=== PATIENT | male | born 1980 | race Caucasian/White ===

== ENCOUNTER 2023-04-28 05:22 | Observation (INO) ==
--- NOTE | 2023-04-24 09:53 | Anesthesiology Consultation ---
Date of Service April 24, 2023 Assessment & Plan (1) Encounter for pre-operative examination: Chart Review Chart Review: Acceptable Risk for Surgery (pending DOS labs ) and Patient NOT seen in Pre Admission Testing - Will order CBC with diff, PRP and coags for DOS (patient did not get labs done preoperatively) - Patient is NOT an ideal OPJ candidate (currently scheduled as 23 hour obs) -Infectious Disease screening: Per PAT nursing assessment on 04/21/23. No known infectious disease contacts in past 10 days or current infectious disease symptoms. No recent travel outside the country. Patient last seen by PCP 12/11/22= seen for follow up. Surgery recently cancelled due to insurance coverage. Still drinking alcohol. Work is stressful environment. Otherwise feeling better. Avascular necrosis and ELIS- Lexapro dose increased. History Surgery Operation Date: 04/28/23 10:40 Proposed Procedures p Right Total Hip Arthroplasty - Master Morales MD Height/Weight Height: 5 ft 8 in Weight: 72.575 kg Allergies Allergy/AdvReac Type Severity Reaction Status Date / Time No Known Allergies Allergy Verified 04/21/23 12:05 Medications Home Medications Medication Instructions Recorded Confirmed Last Taken ibuprofen 200 mg tablet 400 - 800 mg PO DIRECTED PRN 11/01/22 04/21/23 Unknown Pain omeprazole 20 mg tablet,delayed 20 mg PO DAILY 11/29/22 04/21/23 Unknown release Past Medical History Medical History Acid reflux controlled, stable per pt Alcohol abuse 04/21/23- states has cut back on drinking, no longer drinking daily, will drink ~4-out 7 days or less 4-8 beers per day on average, denies withdrawal seizures or DTs Anxiety Gouty arthritis History of COVID-2019 > not hospitalized > symptoms resolved Hypertension stable per pt, PCP monitoring Past Family History Family History Other No family history of adverse response to anesthesia Past Surgical History Surgical History Hx of removal of cyst head [place] teeth extracted Social History Smoking Status: Current some day smoker Smoking cigarettes per day: 1-2 cigarettes per week -advised Do You Dip or Chew Tobacco: No Hx Alcohol Use: Yes Alcohol type: beer alcohol intake frequency: a few times a week Hx Substance Use: Yes (advised) substance use type: marijuana Last Used Substance Other:: 04/20 Testing Electrocardiogram Date: 12/02/22 NSR, rate 73 bpm Chest X-Ray Date: 11/01/22 *1view* No active disease in the chest.
--- NOTE | 2023-04-26 09:45 | History & Physical Report ---
Date of Service April 26, 2023 Assessment & Plan (1) Arthritis of right hip: 42-year-old gentleman with a significant smoking and alcohol history of bilateral hip AVN right side worse than the left. Failed conservative treatment. He is ready to have his hip fixed. Is affecting his quality of life. Plan: Orgran taken to the operating do right total hip placement. The risks Mente this procedure explained the patient include but not limited to DVT PE infection neurological and vascular bleeding palm pain limb range of motion sepsis fairly with symptoms incomplete relief of symptoms need for further surgery in the future. Patient understands and desires to proceed. Informed consent was obtained. Will use DVT prophylaxis in the hospital due to alcohol use. Will stay in the hospital overnight. Hopefully discharge to home. His girlfriend is going to come and assist in his care. He will follow back with me 2 weeks postop. (2) Avascular necrosis of bone of hip: History of Present Illness Chief Complaint: . Right hip pain. Primary Care Provider: Nicolas Motley DO . 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 He has about a year and a half history of persistent progressive right hip pain discomfort is gradually gotten worse over time. Describes buttock pain groin pain thigh. Rating down to his knee. No real numbness. He is having more more difficulty doing his job due to the hip pain. He has good and bad days but have more bad days as time goes on. Takes medicine with a pretty minimal relief. Does have a significant alcohol history and drinks daily. Lives by himself. Allergies Allergy/AdvReac Type Severity Reaction Status Date / Time No Known Allergies Allergy Verified 04/21/23 12:05 Home Medications Medication Instructions Recorded Confirmed Type ibuprofen 200 mg tablet 400 - 800 mg PO DIRECTED PRN 11/01/22 04/21/23 History Pain omeprazole 20 mg tablet,delayed 20 mg PO DAILY 11/29/22 04/21/23 History release Past Med/Surg History Medical History (Updated 04/26/23 @ 09:44 by Master Morales MD) Avascular necrosis of bone of hip Gouty arthritis Acid reflux controlled, stable per pt Hypertension stable per pt, PCP monitoring History of COVID2019 > not hospitalized > symptoms resolved Alcohol abuse 04/21/23- states has cut back on drinking, no longer drinking daily, will drink ~4-out 7 days or less 4-8 beers per day on average, denies withdrawal seizures or DTs Anxiety Surgical History Hx of removal of cyst head [place] teeth extracted Family History Other No family history of adverse response to anesthesia Social History Smoking Status: Current some day smoker Tobacco Type: Cigarettes Cigarettes Per Day: 1-2 cigarettes per week -advised; Second Hand Exposure: No; Do You Dip or Chew Tobacco: No; Tobacco Cessation Education Requested by Patient: No Hx Alcohol Use: Yes Alcohol type: beer Hx Substance Use: Yes (advised) Last Used Substance Other:: 04/20 Preferred Language: Citizen Of [place] Communication Ability: Effective Jacquard Loom Fixer Required: No Beliefs That Will Affect Care: None Current Living Situation: Alone Other Information That Helps Us Care for You: No Feels Safe at Home: Yes Safety Concerns: Feels Safe At This Time Assistive Devices: Glasses Review of Systems All systems reviewed & are unremarkable except as noted in HPI & below. Physical Exam . Physical examination reveals a pleasant middle-age male. Looks to be in pretty good health. Examination of the right hip reveal patient walks with an antalgic gait. Clinical limps on the right side. Is about half centimeter short in the right side compared to the left he is got pain with any type of hip motion. Internal rotation neutral. Negative straight leg raise. He is neurologically intact. Constitutional WD/WN, vitals as above Neck trachea midline, no thyromegaly Respiratory normal respiratory effort, lungs clear to auscultation Cardiovascular RRR, no murmur, no edema Gastrointestinal (Abdomen) normal bowel sounds, soft, nontender, no hepatosplenomegaly Results & Data Results & Data Laboratory Results . Diagnostic Findings . X-rays of the right hip were reviewed. Shows evidence of AV avascular necrosis of the femoral head without collapse. Is got some remodeling. Narrowing of the joint space. Is got similar but less severe since findings on the left side. PG Care Time/CCT Total # of Minutes Spent Total Time Spent with Patient: Total time spent is greater than 50% in coordination of care (as documented) at patient's floor/unit and/or counseling patient: Coding Level of Care Code None Diagnoses Arthritis of right hip M16.11 Avascular necrosis of bone of hip M87.059
--- OUTSIDE RECORDS SUMMARY | 2023-04-28 05:27 | External Medical Summary | Summary of Care ---
Author Name Unknown Organization [facility] Address [address] [place] [address] Phone [phone] Care Team Providers Care Fish Cutting Machine Operator Name Role Phone Unavailable Primary Care Provider Unavailabl e Encounter Details Date Type Department Care Team (Late st Contact Info) Description 03/13/2023 Patient Reported Data Patient Survey Ortho OBERD Allergies No known active allergiesdocumented as of this encounter (statuses as of 03/13/2023) Medications Medication Sig Dispensed Refills Start Date End Date Status Diclofenac Sodium 75 MG Oral Tablet Delayed Release (Voltaren) Take 1 Tablet by mouth in the morning and 1 Tablet before bedtime. With food.. 60 Tablet 3 11/29/2022 Active Additional Information Patient not taking.Reported on 03/10/2023 Escitalopram Oxalate 20 MG Oral Tablet (Lexapro)Indication s:ELIS (generalized anxiety disorder) Take 1 Tablet by mouth in the morning. 30 Tablet 5 12/11/2022 Active Additional Information Patient not taking.Reported on 03/10/2023 documented as of this encounter (statuses as of 03/13/2023) Active Problems Problem Noted Date Diagnosed Date ELIS (generalized anxiety disorder) 12/11/2022 Avascular necrosis 12/11/2022 Gout 11/12/2022 documented as of this encounter (statuses as of 03/13/2023) Immunizations Name Administration Dates Next Due Seasonal Influenza, PF, 6 M & above, IM , (FluLaval or Fluzone) 11/12/2022 TDAP (age 10 and older)(Boostrix) 11/12/2022 documented as of this encounter Social History Tobacco Use Types Packs/Day Years Used Date Smoking Tobacco: Every Day Cigarettes 0.3 Smokeless Tobacco: Never Alcohol Use Standard Drinks/Week Comments Yes 0 (1 standard drink = 0.6 oz pur e alcohol) 2-3 a day PHQ-2 Answer Date Recorded PHQ Adult Total Score 0 12/11/2022 Hunger Vital Sign Answer Date Recorded Within the past 12 months, y ou worried that your food would run out before you got the money to buy more. Never true 10/30/19 23 Within the past 12 months, t he food you bought just didn't last and you didn't have money to get more. Never true 10/29/2022 Sex and Gender Information Value Date Recorded Sex Assigned at Male 10/29/2022 9:11 AM EDT Gender Identity Male 10/29/2022 9:11 AM EDT Sexual Orientation Straight 10/29/2022 9: 11 AM EDT Job Start Date Occupation Industry Not on file Not on file Not on file documented as of this encounter Plan of Treatment Health Maintenance Due Date Last Done Comments Diabetes Screening 1980 Hepatitis B (1 of 3 - 3-dose series) 1980 Lipid Panel 1980 Pneumococcal Vaccine: Pediatrics (0 to 5 Years) and At-Risk Patients (6 to 64 Years) (1 - PCV) 1986 HIV Screening 11/25/1995 Hepatitis C Screening 1998 COVID-19 Vaccine (3 - 2022-2 4 season) 2022 08/13/2020, 07/16/2020 Depression Screening 12/12/2023 12/11/2022 DTaP,Tdap,and Td Vaccines (2 - Td or Tdap) 11/12/2032 11/12/2022 Influenza Vaccine (FLU shot) Completed 11/12/2022 GARDASIL-HPV IMMUNIZATION SERIES Aged Out No longer eligible b ased on patient's age to complete this topic MENINGOCOCCAL (MENACTRA/MENVEO) Aged Out No longer eligible b ased on patient's age to complete this topic documented as of this encounter Medical Devices Not on filedocumented as of this encounter
--- OUTSIDE RECORDS SUMMARY | 2023-04-28 05:28 | External Medical Summary | Summary of Care ---
Author Name Unknown Organization [facility] Address [address] [place] [address] Phone [phone] Care Team Providers Care Rehabilitation Construction Specialist Name Role Phone Unavailable Primary Care Provider Unavailabl e Encounter Details Date Type Department Care Team (Late st Contact Info) Description 03/01/2023 Patient Reported Data Patient Survey Ortho OBERD Allergies No known active allergiesdocumented as of this encounter (statuses as of 03/01/2023) Medications Medication Sig Dispensed Refills Start Date End Date Status Diclofenac Sodium 75 MG Oral Tablet Delayed Release (Voltaren) Take 1 Tablet by mouth in the morning and 1 Tablet before bedtime. With food.. 60 Tablet 3 11/29/2022 Active Escitalopram Oxalate 20 MG Oral Tablet (Lexapro)Indications: ELIS (generalized anxiety disorder) Take 1 Tablet by mouth in the morning. 30 Tablet 5 12/11/2022 Active documented as of this encounter (statuses as of 03/01/2023) Active Problems Problem Noted Date Diagnosed Date ELIS (generalized anxiety disorder) 12/11/2022 Avascular necrosis 12/11/2022 Gout 11/12/2022 documented as of this encounter (statuses as of 03/01/2023) Immunizations Name Administration Dates Next Due Seasonal [...] as of this encounter Plan of Treatment Upcoming Encounters Date Type Department Care Team (Late st Contact Info) Description 03/10/2023 8:30 AM EST Office Visit Orthopaedics, [facility]ull[facility] [address] [place] [address] Atif Park MD [address] [facility] [place] [address] 03/17/2023 3:25 PM EST Office Visit Family Practice [facility] [address] [place] [address] Nicolas Motley, [address] [facility] [place] [address] Health Maintenance Due Date Last Done Comments [...]
--- OUTSIDE RECORDS SUMMARY | 2023-04-28 05:28 | External Medical Summary | Summary of Care ---
Author Name Unknown Organization [facility] Address [address] [place] [address] Phone [phone] Care Team Providers Care Exhibit Carpenter Name Role Phone Unavailable Primary Care Provider [...] [address] [place] [address] Atif Park MD [address] [facility] [place] [address] 03/17/2023 3:25 PM EST Office Visit Family Practice [facility] [address] [place] [address] Nicolas Motley, [address] [facility] [place] [address] Health Maintenance Due Date Last Done Comments [...]
--- OUTSIDE RECORDS SUMMARY | 2023-04-28 05:28 | External Medical Summary | Summary of Care ---
Author Name Unknown Organization [facility] Address [address] [place] [address] Phone [phone] Care Team Providers Care Resolute Professional Name Role Phone Unavailable Primary Care Provider [...] [address] [place] [address] Atif Park MD [address] [facility] [place] [address] 03/17/2023 3:25 PM EST Office Visit Family Practice [facility] [address] [place] [address] Nicolas Motley, [address] [place] [address] Health Maintenance Due Date Last Done Comments [...]
--- OUTSIDE RECORDS SUMMARY | 2023-04-28 05:28 | External Medical Summary | Summary of Care ---
Author Name Unknown Organization [facility] Address [address] [place] [address] Phone [phone] Care Team Providers Care Spot Sprayer Name Role Phone Unavailable Primary Care Provider [...] [address] [place] [address] Atif Park MD [address] [facility] [address] 03/17/2023 3:25 PM EST Office Visit Family Practice [facility] [address] [place] [address] Nicolas Motley, [address] [facility] [place] [address] Health Maintenance Due Date Last Done Comments [...]
--- OUTSIDE RECORDS SUMMARY | 2023-04-28 05:28 | External Medical Summary | Summary of Care ---
Author Name Unknown Organization [facility] Address [address] [place] [address] Phone [phone] Care Team Providers Care Consumer Loan Officer Name Role Phone Unavailable Primary Care Provider [...] [address] [place] [address] Atif Park MD [address] [facility] [place] [address] 03/17/2023 3:25 PM EST Office Visit Family Practice [facility] [address] [place] [address] Nicolas Motley, [address] [place] [address] Health Maintenance Due Date Last Done Comments [...]
--- OUTSIDE RECORDS SUMMARY | 2023-04-28 05:28 | External Medical Summary | Summary of Care ---
Author Name Unknown Organization [facility] Address [address] [place] [address] Phone [phone] Care Team Providers Care Belt Changer Name Role Phone Unavailable Primary Care Provider Unavailabl e Reason for Visit * Reason Comments NEW PATIENT Flynn hip pain, right worse than left. Referred by Dr. Alejo. Xray 10/31/22. * Evaluate & Treat - Unlimited Visits (Within 10 days (routine)) - Authorized Specialty Diagnoses / Procedures Referred By Karmen burch Referred To Contact Orthopaedic Surgery / Orthopedics Diagnoses Avascular necrosis of femoral head, right (HCC) Avascular necrosis of femoral head, left (HCC) Dee Alejo MD [address] [place] [address] Referral ID Status Reason Start Date Expiration Date Visits Requested Visits Authorized [id number] Authorized Specialty Services Required 3 12/11/[phone] Encounter Details Date Type Department Care Team (Late st Contact Info) Description 03/10/2023 8:30 AM EST Office Visit Orthopaedics, Germ[facility] Grullon [address] [place] [address] Atif Park MD [address] [place] [address] Avascular necrosis of femoral head, right (HCC)* Allergies No known active allergiesdocumented as of this encounter (statuses as of 03/10/2023) Medications Medication Sig Dispensed Refills Start Date [...] as of this encounter (statuses as of 03/10/2023) Active Problems Problem Noted Date Diagnosed Date ELIS (generalized anxiety disorder) 12/11/2022 Avascular necrosis 12/11/2022 Gout 11/12/2022 documented as of this encounter (statuses as of 03/10/2023) Immunizations Name Administration Dates Next Due Seasonal [...] on file documented as of this encounter Last Filed Vital Signs Vital Sign Reading Time Taken Comments Blood Pressure - - Pulse - - Temperature - - Respiratory Rate - - Oxygen Saturation - - Inhaled Oxygen Concentration - - Weight 77.2 kg (170 lb 4.8 oz) 03/10/2023 8:42 A M EST Height 172.7 cm (5' 8") 03/10/2023 8:42 AM EST Body Mass Index 25.89 03/10/2023 8:42 AM EST documented in this encounter Progress Notes * Atif Park MD - 03/10/2023 8:44 AM EST Patient Name: Freddy Hernandez CC: NEW PATIENT (Flynn hip pain, right worse than left. Referred by Dr. Alejo. Xray 10/31/22. ) HPI: Freddy Hernandez 42 year old male comes in for evaluation of Right hip pain chronic pain which is progressively getting worse where he is having severe difficulty in ambulation, pain is moderate to severe, dull ache in nature, get worse with walking, climbing stairs and with routine activities. Patient reports daily living activity were affected significantly due to pain and also c/o night pain which awakens them from sleep. Patient tried conservative treatment and reported no improvement of pain. He has minimal discomfort of the left hip. He feel limb length discrepancy secondary to pelvic obliquity with lower extremity is longer clinically. Patient is a smoker as well as chronic alcohol drinker Past Medical History: Diagnosis Date Gout No past surgical history on file. No family history on file. Social History Social History Narrative Originally from [place]. Lived in [place] for a period ROS- Denies any recent illness, denies acute chest pain, breathlessness, loss of conscious, weakness, other system are reviewed and as discussed above. Examination: Ht 1.727 m (5' 8") | Wt 77.2 kg (170 lb 4.8 oz) | BMI 25.89 kg/m | BSA 1.92 m The patient is stable, oriented to person, place and time. The patient is not in acute distress. Gait-Patient walks with significant limp. Right Hip- Tenderness around hip ROM- Positive flexion contracture approximately around 15 with severe restricted range of motions and rotations. Grossly intact neurovascular status. Radiographic evaluation- I reviewed radiographs independently was ordered by another provider. Radiographs demonstrated a vascular necrosis of femoral head with deformity and arthritis of hip joint, loss of joint space,. Left hip shows minimal symptoms. Pelvic obliquity with locked hip is on lower side. Hemoglobin AIC Results: No results found for: "HEMOGLOBIN A1C" CBC Results: Basic Panel Results: Diagnosis- a vascular necrosis of femoral head with arthritis of Right hip with failed conservativetreatment. Plan- Discussed all finding in detail including radiographic and clinical findings. I had a long discussion with the patient regarding arthritis and treatment options. We had long discussion about non-operative management, which includes the use of appropriate exercises, activity modification, physical therapy treatment, weight reduction and maintenance, appropriate medication use, use of assistive devices, role of injection and avoidance of high impact activities. The patient has severe disease and has exhausted all reasonable non-operative treatment options. The patient has suffered a significant degradation in quality of life. Total Hip arthroplasty can improve this patient's pain and function, thereby restoring their quality of life. However, while I believe that the benefits greatly outweigh the risks in this case, the patient understands that there isno guarantee of a satisfactory outcome following surgery. The patient understands that total joint arthroplasty is an elective procedure. We reviewed the elective quality of life nature of the procedure and the details of surgery, approach and the implant used, using the model and illustration in the clinic. We also had a long discussion about the risks of surgery. Again, this list is certainly not complete, but is intended to make the patient aware of the kinds of complications that can occur with majororthopaedic surgery. These risks include, but are not limited to: implant dislocation, fracture of the supporting bone, injury to a nerve or blood vessel, injury of a tendon or ligament, post-operative pain, stiffness or instability of the joint, dislocation, limb length inequality, loosening of the implant, mechanical failure of the implant, and infection of the implant. She is high risk for dislocation considering his heavy drinking of alcohol as well as high risk of loosening of implant or failure to osteo integrate keep due to smoking as well as high risk of medical and anesthesia due to his heavy drinking alcohol and smoking. Discussed with the patient about smoking cessation as well as cutting down his alcohol. He will follow up with us after he discussed with PCP regarding his heavy drinking of alcohol and we will get help from PCP to cut down the alcohol. This chart was completed in part utilizing [employer] Speech Voice Recognition Software. Grammatical errors, random word insertions, prounoun errors and incomplete sentences are an occasional consequence of this system due to software limitations, ambient noise, and hardware issues. Any formal questions or concerns about the content, text, or information contained within the body of this dictation should be directly addressed to the provider for clarification. documented in this encounter Nursing Notes * Zo Duque LPN - 03/10/2023 8:43 AM EST Chief Complaint Patient presents with NEW PATIENT Flynn hip pain, right worse than left. Referred by Dr. Alejo. Xray 10/31/22. documented in this encounter Plan of Treatment Upcoming Encounters Date Type Department Care Team (Late st Contact Info) Description 03/17/2023 3:25 PM EST Office Visit [facility] [place] [address] [facility] [place] [address] Nicolas Motley, 200 [facility] [place] [address] Scheduled Referrals Name Type Priority Associated Diagnoses Order Schedule ORTHOPAEDICS REFERRAL OP Referral Within 10 days (routine) Avascular necrosis of femoral head, right (HCC) Avascular necrosis of femoral head, left (HCC) Ordered: 12/10/2022 Health Maintenance Due Date Last Done Comments [...] Not on filedocumented as of this encounter Visit Diagnoses Diagnosis Avascular necrosis of femoral head, right (HCC)- Primary documented in this encounter
[2023-04-28] MEDS: ACETAMINOPHEN 500 MG TAB PO SCH ×2 (05:49→13:39)
[2023-04-28] MEDS: LR 500ML BOLUS, THEN 15ML/HR IV SCH (05:49)
[2023-04-28] MEDS: dexAMETHasone**PF** 10 MG/ML VIAL IV SCH (05:49)
[2023-04-28] MEDS: METOCLOPRAMIDE HCL 10 MG TABLET PO SCH (05:50)
[2023-04-28] MEDS: FAMOTIDINE 20 MG TAB PO SCH (05:50)
[2023-04-28] MEDS: LR 60ML/HR IV SCH (05:50)
[2023-04-28] MEDS: CeleBREX 200 MG CAP PO SCH (05:50)
[2023-04-28] MEDS: Scopolamine 1 MG TDSY TD SCH (05:50)
[2023-04-28 06:02] LABS: Basophils # (auto) 0.04 K/uL (0.00-0.20); Basophils % (auto) 0.5 %; Eosinophils # (auto) 0.21 K/uL (0.00-0.50); Eosinophils % (auto) 2.8 %; Hematocrit (blood only) 46.8 % (42.0-52.0); Hemoglobin 16.1 g/dl (14.0-18.0); Immature Granulocytes # (auto) 0.04 K/uL (0.01-0.20); Immature Granulocytes % (auto) 0.5 %; Mean Corpuscular Hemoglobin 29.6 pg (25.0-34.0); Mean Corpuscular Hgb Conc 34.4 g/dL (32.0-36.0); Mean Platelet Volume 9.4 fL (9.4-12.4); Monocytes # (auto) 0.71 K/uL (0.11-0.59); Monocytes % (auto) 9.5 %; Neutrophils % (auto) 50.7 %; Platelet Count 414 K/uL (130-400); RDW Coefficient of Variation 12.1 % (11.5-14.5); RDW Standard Deviation 37.6 fL (36.4-46.3); Red Blood Count 5.44 M/uL (4.70-6.10)
[2023-04-28 06:09] LABS: BUN Creatinine Ratio 14.6 (10-20); Calcium 10.1 mg/dl (8.6-10.3); Creatinine Clr Calc Pharmacy 90.4 ml/min; Est GFR (African American) 103.4 ml/min; Est GFR (Non-African American) 89.2 ml/min; Potassium 4.1 mmol/L (3.5-5.1)
[2023-04-28] MEDS ORDERED: BUPIVACAINE 0.5 % 5 MG/1 ML PF 10ML VIAL ONE (06:20)
[2023-04-28] MEDS ORDERED: DexMEDEtomidine HCL IV 100 MCG/ML VIAL IV ONE (06:29)
[2023-04-28] MEDS ORDERED: fentaNYL citrate PF 100 MCG/2 ML VIAL ONE (06:36)
[2023-04-28] MEDS ORDERED: MIDAZOLAM HCL 1 MG/ML 2ML VIAL ONE (06:36)
[2023-04-28 06:44] LABS: Partial Thromboplastin Time 27 Seconds (21-31); Prothrombin Time 11.4 Seconds (9.0-12.0)
[2023-04-28] MEDS: TRANEXAMIC ACID 1,000 MG **IV Pre-op IV SCH (06:52)
--- NOTE | 2023-04-28 06:53 | History & Physical Bridge Note ---
Date of Service April 28, 2023 History & Physical Bridge Note I have examined the patient, reviewed the History & Physical and in the interval since the performance of the History & Physical I have noted the following changes of clinical significance: no changes noted
[2023-04-28] MEDS: ceFAZolin 2000MG 2,000 MG/15 ML SYR IV SCH (06:55)
[2023-04-28] MEDS ORDERED: ePHEDrine sulfate 50 MG/ML AMP IV PRN (07:05)
[2023-04-28] MEDS ORDERED: PROMETHAZINE HCL 6.25 MG in SODIUM CHLORIDE 0.9% 50 ML IV PRN (07:05)
[2023-04-28] MEDS ORDERED: ONDANSETRON INJ 2 MG/ML 2 ML VIAL IV PRN ×2 (07:05→09:57)
[2023-04-28] MEDS ORDERED: ATROPINE SULFATE 0.1 MG/ML 10ML SYR IV PRN (07:05)
[2023-04-28] MEDS ORDERED: HYDROmorphone INJ 2 MG/ML SYR/VIAL IV PRN (07:05)
[2023-04-28] MEDS ORDERED: ONDANSETRON INJ 2 MG/ML 2 ML VIAL ONE (07:32)
[2023-04-28] MEDS ORDERED: DEXAMETHASONE SOD INJ 4 MG/ML VIAL ONE (07:32)
[2023-04-28] MEDS ORDERED: PROPOFOL IV EMULSION 10 MG/ML 100 ML VIAL IV ONE (07:32)
[2023-04-28] MEDS: BUPIVACAINE/EPINEPHRINE 0.5% MPF 1:200,000 30 ML VIAL ONE (08:02)
[2023-04-28] MEDS ORDERED: chlordiazePOXIDE HCl 25 MG CAP PO PRN (08:26)
--- NOTE | 2023-04-28 08:34 | Operative Report ---
PG Post Operative Report Pre & Post Diagnosis Operation Date: 04/28/23 07:00 Pre-Op Diagnosis: Hip Avascular Necrosis Right Post-Op Diagnosis: Hip Avascular Necrosis Right I identified the patient and participated in the time-out.: Yes Procedure Operation Date: 04/28/23 07:00 Actual Procedures p Right Total Hip Arthroplasty(Right) - Master Morales MD Surgeon Master Morales MD Umbrella Mender Everardo Celestin PA-C Estimated Blood Loss 100 Findings Consistent with Post-Op Diagnosis Operative findings revealed pretty extensive avascular necrosis femoral head with collapse of femoral head. He had delamination of the cartilage. He had some secondary degenerative changes. Fairly large hip joint effusion. Specimens Right femoral head sent for pathology. Anesthesia Type Spinal MAC Complications none Disposition Accompanied Patient To Recovery: No Indications Patient is a 42-year-old gentleman whose had a several year history of increasing right hip pain discomfort is consequently worse over the past 6 to 12 months. A has a known history of significant alcohol intake. X-rays show hip avascular necrosis with progressive collapse. He failed conservative treatment. He had been scheduled for surgery in the past but had to cancel for various reasons. He has become more debilitated by his hip pain. Is having difficulty doing his job. He is elected proceed with total hip arthroplasty. Description of Procedure Operative implants consist of: 1. Biomet G7 size 52 mm acetabular shell. 2. 6.5 cancellous acetabular screws 1 of 35 mm in length and 1 of 20 mm length. 3. [place] hole renewals specialist. 4. Highly cross-linked polyethylene liner with a 52 mm outer diameter 36 mm inner diameter. 5. DePuy Karaya size 11 KLA femoral stem. 6. +5/36 mm ceramic articular ball. The patient was taken to the operating, identified, placed on the operating table in the supine position. All contact areas were appropriately padded. IV antibiotics 5 by anesthesia team. Spinal anesthetic had been implemented holding area. The patient was then placed in the left lateral decubitus position. Axillary roll was placed. Distal Birkett position was used for positioning. The right hip and leg were then prepped and draped in usual sterile fashion. A posterolateral approach to the right hip was then performed through a curvilinear incision centered over the greater trochanter. Sharp dissection was carried through subcutaneous tissue down of the IT band gluteal fascia. The IT band gluteal fascia was incised longitudinally in line with skin incision. The underlying greater bursa was excised. The piriformis and external rotators along with the posterior hip joint capsule were then released from the posterior aspect the hip as a single layer. Great care was taken throughout the procedure protect the sciatic nerve at all times. The hip was internally rotated and dislocated. Femoral neck osteotomy cut was made with a Final Cut about 12 mm above the lesser trochanter. Femoral head was removed and sent for pathology. The femur was retracted anteriorly. Attention drawn the acetabulum. The acetabular labrum was excised. The pulmonary fat was excised. Sequential reaming the acetabular was then performed beginning with a size 45 and progressing up to a 51. I reamed a little bit with a 52 reamer and then placed a 52 mm Biomet acetabular shell in about 40 degrees lateral opening and 20 degrees of anteversion. It was fixed with two 6.5 cancellous acetabular screws. Trial liner was placed. Attention drawn the femur. The proximal femur was then with a [employer] cutter followed by canal finder. I then broached beginning size 8 broach and progressed up to 11. Get excellent fit 11. I did not think I could fit the 12 distally. We trialed the hip and the +5 articular ball provide full stability in full extension and external rotation and flexion to 90 degrees internal rotation to over 50 degrees. The hip was stable. Soft tissue tension seemed appropriate and leg lengths seemed equal. We elect to place these implants. All trial implants were removed. [place] hole renewals specialist was placed. Highly cross- linked polyethylene liner was placed. A size 11 KLA femoral stem was impacted in position. +5/36 mm ceramic articular ball was placed. Hip was located and once again found to be stable. Attention drawn toward closing. The wound was irrigated with copious amounts of pulsatile lavage solution. I did inject locally with 60 cc of half percent Marcaine with epinephrine. The posterior capsule and external rotators then repaired through drill holes in the posterior trochanter with #2 Tycron suture. The IT band gluteal fascia then closed in 1 PDS suture running fashion. Subcutaneous tissues then closed with 2 layers the deep layer #1 Vicryl suture and subcutaneous tissue with 2-0 Dexon suture in a buried interrupted fashion. Skin was closed skin jamal. Leg was then cleaned and dried and sterile dressing was Xeroform, 4 fours, ABD pad and foam tape was applied. The patient then transferred to the recovery room in stable condition. Patient tolerated procedure well and there were no complications. Everardo Celestin, my physician assistant boys track coach, was present for the entire procedure. His assistance was essential and required for appropriate patient positioning, prepping and draping, surgical exposure, performing the technical details of the operation, placement the implants, closure of the wound, and placement of the sterile bandage. I attest to the content of the Intraoperative Record and any orders documented therein. Any exceptions are noted below.
--- NOTE | 2023-04-28 09:07 | XRay Report ---
XR hip 1V RT w pelvis CLINICAL HISTORY: Postoperative evaluation. COMPARISON: Right hip radiographs October 31, 2022. FINDINGS: Alignment of the total right hip arthroplasty is anatomic. There is no periprosthetic frac ture or unexpected radiopaque foreign body. There are acetabular screws. IMPRESSION: Expected findings following total right hip arthroplasty. ACT 112: Negative or not required by law. Electronically signed by: Zane Valenzuela M.D. 04/28/2023 9:05 AM
--- NOTE | 2023-04-28 09:42 | Anesthesiology Progress Note ---
Date of Service April 28, 2023 Anesthesia Post Procedure Vital Signs Vital Signs: Temp Pulse Pulse Resp BP BP Pulse Ox 04/28/23 09:35 82 15 147/95 H 99 04/28/23 09:25 84 16 128/96 99 04/28/23 09:15 80 13 142/99 H 100 04/28/23 09:05 36.4 C L 82 12 146/105 H 100 04/28/23 08:55 86 19 150/96 H 100 04/28/23 08:45 74 13 132/95 98 04/28/23 08:35 89 23 150/88 H 100 04/28/23 08:25 83 16 136/94 100 04/28/23 08:18 36.3 C L 84 29 H 146/91 H 99 04/28/23 05:39 36.6 C 96 H 20 138/89 97 O2 Del Method 04/28/23 09:35 Room Air 04/28/23 09:25 Room Air 04/28/23 09:15 Room Air 04/28/23 09:05 Room Air 04/28/23 08:55 Room Air 04/28/23 08:45 Room Air 04/28/23 08:35 Room Air 04/28/23 08:25 Room Air 04/28/23 08:18 Room Air 04/28/23 05:39 Room Air Transfer of Care Handoff Completed per policy Notes Mental Status: alert / awake / arousable and participated in evaluation Nausea / Vomiting: adequately controlled Pain: adequately controlled Airway Patency, RR, SpO2: stable & adequate BP & HR: stable & adequate Hydration State: stable & adequate Neuraxial Anesthesia: was administered and sensory block is resolving Anesthetic Complications: no major complications apparent and Pt Satisfied with anesthetic care
[2023-04-28] MEDS ORDERED: TAMSULOSIN HCL 0.4 MG CAP PO PRN (09:57)
[2023-04-28] MEDS ORDERED: MAGNESIUM HYDROXIDE SUSP 30 ML UDC PO PRN (09:57)
[2023-04-28] MEDS ORDERED: bisacodyL 10 MG SUPP PR PRN (09:57)
[2023-04-28] MEDS ORDERED: NALOXONE HCL 0.4 MG/1 ML VIAL/CARP IV PRN (09:57)
[2023-04-28] MEDS ORDERED: diphenhydrAMINE Capsule 25 MG CAP PO PRN (09:57)
[2023-04-28] MEDS ORDERED: ALUMINUM/MAGNESIUM SUSP 30 ML UDC PO PRN (09:57)
[2023-04-28] MEDS ORDERED: METOCLOPRAMIDE HCL INJ 5 MG/ML 2 ML VIAL IV PRN (09:57)
[2023-04-28] MEDS: SENNA 8.6 MG TAB PO SCH (10:36)
[2023-04-28] MEDS: PANTOprazole 40 MG TAB PO SCH (10:36)
[2023-04-28] MEDS: MULTIVITAMIN TAB PO SCH (10:36)
[2023-04-28] MEDS: NICOTINE 14 MG/24 HR PATCH TD SCH (10:37)
[2023-04-28] MEDS: ASPIRIN 81 MG ECTAB PO SCH (10:37)
[2023-04-28] MEDS: DOCUSATE SODIUM 100 MG CAP PO SCH (10:37)
[2023-04-28] MEDS: FOLIC ACID 1 MG TAB PO SCH (10:37)
[2023-04-28] MEDS: THIAMINE HCL 100 MG TAB PO SCH (10:37)
[2023-04-28] MEDS: KETOROLAC 30 MG/ML VIAL IV SCH (10:38)
[2023-04-28] MEDS: ceFAZolin 1000MG 1,000 MG/7.5 ML SYR IV SCH (14:55)
[2023-04-28] MEDS: TRANEXAMIC ACID / 0.7% NACL 1,000 MG/100 ML BAG IV SCH (14:55)
[2023-04-28] MEDS: ASCORBIC ACID 500 MG TAB PO SCH (16:28)
[2023-04-28] MEDS: Scopolamine CHECK PATCH PLACEMENT SCH (16:28)
[2023-04-28] MEDS: SODIUM CHLORIDE 0.9% 1,000 ML IV SCH (17:05)
[2023-04-28] MEDS: traMADol HCL 50 MG TABLET PO PRN (19:04)
[2023-04-28] MEDS: HYDROmorphone INJ 0.5 MG/0.5 ML SYR IV PRN (19:55)
[2023-04-28] MEDS ORDERED: SENNA 8.6 MG TAB PO SCH (21:00)
[2023-04-29 06:15] LABS: Basophils # (auto) 0.01 K/uL (0.00-0.20); Basophils % (auto) 0.1 %; Hematocrit (blood only) 38.9 % (42.0-52.0); Hemoglobin 13.5 g/dl (14.0-18.0); Immature Granulocytes # (auto) 0.04 K/uL (0.01-0.20); Immature Granulocytes % (auto) 0.3 %; Lymphocytes % (auto) 8.9 %; Mean Corpuscular Hemoglobin 29.9 pg (25.0-34.0); Mean Corpuscular Hgb Conc 34.7 g/dL (32.0-36.0); Mean Corpuscular Volume 86.3 fL (80.0-100.0); Mean Platelet Volume 9.8 fL (9.4-12.4); Monocytes # (auto) 1.05 K/uL (0.11-0.59); Monocytes % (auto) 8.5 %; Neutrophils # (auto) 10.16 K/uL (1.40-6.50); Neutrophils % (auto) 82.2 %; Platelet Count 303 K/uL (130-400); RDW Coefficient of Variation 12.2 % (11.5-14.5); RDW Standard Deviation 38.3 fL (36.4-46.3); Red Blood Count 4.51 M/uL (4.70-6.10); White Blood Count 12.36 K/ul (4.8-10.8)
[2023-04-29 06:41] LABS: Potassium 4.3 mmol/L (3.5-5.1)
[2023-04-29 06:46] LABS: BUN Creatinine Ratio 19.8 (10-20); Est GFR (African American) 112.5 ml/min; Est GFR (Non-African American) 97.1 ml/min
[2023-04-29] MEDS: dexAMETHasone 10 MG in SYRINGE 0 ML IV SCH (08:57)
--- NOTE | 2023-04-29 17:23 | Surgery Progress Note ---
Date of Service April 29, 2023 Assessment & Plan (1) Status post right hip replacement: Plan: 42-year-old gentleman postop day 1 from right hip replacement done for avascular necrosis. He is doing well. Pain is controlled. He is getting around quite well. Plan: 1. DVT prophylaxis including thigh-high teds, SCDs, aspirin twice a day. 2. PT/OT. Fully weight-bear as tolerated. Needs to obey hip precautions. 3. Pain control doing okay with current pain regimen. 4. Disposition plan is to discharge to home. He is can have home health and his girlfriend to assist in his care. Admission and Anticipated Discharge Date Admission Date: April 28, 2023 Subjective 42-year-old gentleman postop day 1 from total hip replacement done for avascular necrosis. He is doing pretty well. Had a reasonably good night. Pain is controlled. No chest pain or shortness of breath. Not feeling dizzy or lightheaded. Physical Exam Physical Exam: Physical examination was a pleasant middle-age male. He he was walking the hallways when I visited him this morning. Examination of the hip reveals the dressing be clean dry and intact. Walks quite well with a walker and can even walk without it. Leg lengths are equal. He is neurologically intact. Thigh is soft and supple. Minimal drainage on his dressing. Respiratory: normal respiratory effort, lungs clear to auscultation Cardiovascular: RRR, no murmur, no edema Results & Data Vital Signs (Past 12 Hours) Vital Signs Temp Pulse Resp BP Pulse Ox O2 Del Method 04/29/23 07:33 36.4 C L 95 H 16 147/98 H 100 Room Air Laboratory Results Hemoglobin is 13.5. Hematocrit is 38.9. Electrolytes are stable. PG Care Time/CCT Total # of Minutes Spent Total Time Spent with Patient: Total time spent is greater than 50% in coordination of care (as documented) at patient's floor/unit and/or counseling patient: Coding Level of Care Code 79448 Post Operative Follow-Up Diagnoses Status post right hip replacement Z96.641
--- NOTE | 2023-05-01 09:13 | Discharge Summary ---
Date of Service May 01, 2023 Discharge Data Procedures Performed Operation Date: 04/28/23 07:00 Actual Procedures p Right Total Hip Arthroplasty(Right) - Master Morales MD Hospital Course (1) Status post right hip replacement: This is a 42 year old patient admitted on 04/28/23 and underwent total hip arthroplasty. He tolerated the procedure well and there were no complications. Transferred to the PACU post op and later to the orthopedic floor for further care. He was given ancef for antibiotic prophylaxis. He was also given JENNIFER stockings, SCDs, and aspirin for DVT prophylaxis. Hemoglobin, hematocrit, and vital signs were monitored during his hospital stay and remained stable. Did not require any blood transfusions. There were no complications during his hospital stay. By post op day #1 the patient was tolerating a regular diet, pain was reasonably controlled with oral pain medicine, and he was participating in physical therapy. On post op day #1 the patient was discharged home and set up with home health care. He was given printed discharge instructions including prescriptions for extra strength tylenol, aspirin, ketorolac, zofran, senokot, and tramadol. Continue hip precautions. Continue physical therapy, weight bearing as tolerated. Continue JENNIFER stockings. Follow up approximately 2 weeks post op or sooner if there are problems or concerns. Coding Level of Care Code None Diagnoses Status post right hip replacement Z96.641
== END 2023-04-29 11:25 | disposition home health service (06) ==
LOC: 3E 05:22 → ASU 05:22